=== PATIENT | female | born 1965 | race Caucasian/White ===

== ENCOUNTER 2016-10-28 16:37 | Emergency (ER) | payer OTHER ==
[~2016-10-28] VITALS: Ht 157.5 cm; Wt 68.0 kg
[2016-10-28 16:51] VITALS: Ht 157.5 cm; Wt 68.0 kg
[2016-10-28] MEDS ORDERED: KETOROLAC 30 MG INJ IM STA (17:50)
[2016-10-28] MEDS ORDERED: TRAM50TA2 PO (17:56)
[2016-10-28] MEDS ORDERED: IBUP-1542 PO (17:56)
--- NOTE | 2016-10-28 18:01 | ERD ---
ER Documentation Chief Complaint Date/Time DATE: 10/28/16 TIME: 17:56 Chief Complaint r arm pain months getting worse all prescribed meds not effective HPI Patient is a 51-year-old female who presents to the emergency department with right arm pain 7 months. 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 Patient denies any falls or trauma. Patient reports taking his medications including ibuprofen, naproxen, Voltaren gel, and discharges with no relief of symptoms. She denies any fevers or chills. Patient denies any chest pain, shortness breath, left upper extremity pain, diaphoresis or loss of consciousness. ROS All systems reviewed and are negative except as per history of present illness. Medications Home Meds Active Scripts Ibuprofen* (Motrin*) 600 Mg Tab, 600 MG PO Q6, #30 TAB Prov:SHIRLEY ESCOBAR PA-C 10/28/16 Tramadol HCl (Tramadol HCl) 50 Mg Tablet, 50 MG PO Q4 Y for PAIN, #20 TAB Prov:SHIRLEY ESCOBAR PA-C 10/28/16 Allergies Allergies: Coded Allergies: No Known Allergy (Unverified , 10/28/16) PMhx/Soc Medical and Surgical Hx: pt denies Medical Hx, pt denies Surgical Hx History of Surgery: No Anesthesia Reaction: No Hx Neurological Disorder: No Hx Respiratory Disorders: No Hx Cardiac Disorders: No Hx Psychiatric Problems: No Hx Miscellaneous Medical Probl: No Hx Alcohol Use: No Hx Substance Use: No Hx Tobacco Use: No Smoking Status: Never smoker FmHx Family History: No diabetes Physical Exam Vitals Vital Signs Date Time Temp Pulse Resp B/P Pulse Ox O2 Delivery O2 Flow Rate FiO2 10/28/16 16:51 98.6 97 18 152/67 99 Physical Exam GENERAL: Well-developed, well-nourished female. Appears in no acute distress. Eating in full sentences HEAD: Normocephalic, atraumatic. EYES: Pupils are equally reactive bilaterally. EOMs grossly intact. No conjunctival erythema. ENT: Moist mucous membranes. No uvula deviation. No kissing tonsils. NECK: Supple. No meningismus. Normal range of motion of the neck. LUNG: Clear to auscultation bilaterally. No rhonchi, wheezing, rales or coarse breath sounds. HEART: Regular rate and rhythm. No murmurs, rubs or gallops EXTREMITIES: Equal pulses bilaterally. No peripheral clubbing, cyanosis or edema. No unilateral leg swelling. NEUROLOGIC: Alert and oriented. Moving all four extremities without any difficulty. Normal speech. Steady gait. SKIN: Normal color. Warm and dry. No rashes or lesions. RIGHT ARM: No deformity, erythema, ecchymosis or swelling. Skin intact. Normal range of motion of the shoulder and elbow, wrist. Unable to pronate and supinate without any difficulty. Minimally tender to the anterior shoulder. Nontender to palpation of the humerus, elbow, forearm.. Sensation intact to light touch. Neurovascularly intact. (Able to give thumbs up, make an ok sign, cross digits 2 and 3, thumb to pinky opposition. 2+ RP.) No snuffbox tenderness. Results 24 hrs Current Medications Medications (Trade) Dose Ordered Sig/Jacques Route PRN Reason Start Time Stop Time Status Last Admin Dose Admin Ketorolac Tromethamine (Toradol) 30 mg ONCE STAT IM 10/28/16 17:50 10/28/16 17:51 DC 10/28/16 18:42 Procedures/MDM ED COURSE: The patient was stable throughout ED course. I kept the patient and/or family informed of laboratory and diagnostic imaging results throughout the ED course. MEDICATIONS GIVEN: Toradol IM Patient tolerated medication well with no adverse reactions. Patient reported improvement in pain. MEDICAL DECISION MAKING: This is a 51-year-old female presents with right shoulder pain 7 months. Patient reports the numerous medications including ibuprofen, naproxen, Voltaren gel and trying started with no relief of symptoms. Patient denies any recent trauma or falls.. Vital signs were reviewed. Patient is afebrile. Patient is not hypoxic. Patient was offered imaging studies here in the ED however she declined given that she doubts that she has a fracture. Patient was given Toradol IM and did report improvement in pain. Given these findings, the patient's presentation is most consistent with shoulder pain. I have a much lower clinical concern for fracture, shoulder dislocation, impingement syndrome, biceps tendonitis, gout, septic joint. Unable to rule out any ligament or tendon injuries at this time. Patient was advised to follow-up with her primary care physician to obtain a referral to an boarding specialist. Patient advised to speak to her primary care physician for physical therapy. Patient also advised to speak with her primary care physician for referral for MRI. PRESCRIPTIONS: Tramadol, Ibuprofen DISCHARGE: At this time, patient is stable for discharge and outpatient management. I have instructed the patient to follow-up with his/her primary care physician in 1-2 days. I have discussed with the patient the possibility of needing to see a specialist for further workup and imaging studies if symptoms persist. I have instructed the patient to promptly return to the ER for any new or worsening symptoms including increased pain, fever, nausea, vomiting, weakness or LOC. The patient and/or family expressed understanding of and agreement with this plan. All questions were answered. Home care instructions were provided. Departure Diagnosis: Primary Impression: Right arm pain Condition: Stable Patient Instructions: Shoulder Pain (Uncertain Cause) Referrals: [facility] YOU HAVE RECEIVED A MEDICAL SCREENING EXAM AND THE RESULTS INDICATE THAT YOU DO NOT HAVE A CONDITION THAT REQUIRES URGENT TREATMENT IN THE EMERGENCY DEPARTMENT. FURTHER EVALUATION AND TREATMENT OF YOUR CONDITION CAN WAIT UNTIL YOU ARE SEEN IN YOUR DOCTORS OFFICE WITHIN THE NEXT 1-2 DAYS. IT IS YOUR RESPONSIBILITY TO MAKE AN APPOINTMENT FOR FOLOW-UP CARE. IF YOU HAVE A PRIMARY DOCTOR --you should call your primary doctor and schedule an appointment IF YOU DO NOT HAVE A PRIMARY DOCTOR YOU CAN CALL OUR PHYSICIAN REFERRAL HOTLINE AT IF YOU CAN NOT AFFORD TO SEE A PHYSICIAN YOU CAN CHOSE FROM THE FOLLOWING [facility] [address] [facility]. [facility] [address] [facility]. [facility] [address] [facility]. [facility] [address] [facility]. [facility] [address] [facility]. [facility]. [address] [facility]. [facility] YOU HAVE RECEIVED A MEDICAL SCREENING EXAM AND THE RESULTS INDICATE THAT YOU DO NOT HAVE A CONDITION THAT REQUIRES URGENT TREATMENT IN THE EMERGENCY DEPARTMENT. FURTHER EVALUATION AND TREATMENT OF YOUR CONDITION CAN WAIT UNTIL YOU ARE SEEN IN YOUR DOCTORS OFFICE WITHIN THE NEXT 1-2 DAYS. IT IS YOUR RESPONSIBILITY TO MAKE AN APPOINTMENT FOR FOLOW-UP CARE. IF YOU HAVE A PRIMARY DOCTOR --you should call your primary doctor and schedule and appointment IF YOU DO NOT HAVE A PRIMARY DOCTOR YOU CAN CALL OUR PHYSICIAN REFERRAL HOTLINE AT . IF YOU CAN NOT AFFORD TO SEE A PHYSICIAN YOU CAN CHOSE FROM THE FOLLOWING FORMERLY [facility], [facility] INSTITUTIONS: [facility] [address] [place] [address] [facility] [address] [place] [address] [facility] + [facility] [address] [place] [address] [facility] Hours: Mon-Fri 9:00 AM - 5:00 PM Additional Instructions: Call your primary care doctor TOMORROW for an appointment during the next 1-2 days.See the doctor sooner or return here if your condition worsens before your appointment time. Patient advised to take tramadol only at night, do not take medication when operating machinery or when at work. Patient will need to follow-up with an boarding specialist for further management of her ongoing shoulder pain. SHIRLEY ESCOBAR PA-C Oct 28, 2016 18:01
== END 2016-10-28 19:09 | disposition home or self-care (01) ==
LOC: FTE 16:37
DX: M79.601 Pain in right arm (principal)
CPT/HCPCS: 96372; J1885; Z7502